=== PATIENT | female | born 1980 ===

== ENCOUNTER 2022-02-09 10:19 | Outpatient (CLI) | payer OTHER | END 2022-02-09 11:35 | disposition home or self-care (01) | LOC: PRENATAL 10:19 | PROVIDERS: ATTEND Obstetrics & Gynecology Maternal & Fetal Medicine | DX: O26.849 Uterine size-date discrepancy, unspecified trimester (principal); O09.529 Supervision of elderly multigravida, unspecified trimester; O28.1 Abnormal biochemical finding on antenatal screening of mother ==

== ENCOUNTER 2022-03-14 14:25 | Outpatient (CLI) | payer OTHER | END 2022-03-14 16:15 | disposition home or self-care (01) | LOC: PRENATAL 14:25 | PROVIDERS: ATTEND Obstetrics & Gynecology Maternal & Fetal Medicine | DX: O35.0XX0 Maternal care for (suspected) central nervous system malformation in fetus, not applicable or unspecified (principal); O35.3XX0 Maternal care for (suspected) damage to fetus from viral disease in mother, not applicable or unspecified; O28.1 Abnormal biochemical finding on antenatal screening of mother; Z3A.20 20 weeks gestation of pregnancy ==